=== PATIENT | female | born 1995 | race Caucasian/White ===

== ENCOUNTER 2022-08-06 15:30 | Day surgery (SDC) | payer OTHER ==
[~2022-08-06 15:30] MED LIST: L-CARNITINE25 GM; LEVO-T50 MCG PO
== END 2022-08-06 19:00 | disposition home or self-care (01) ==
LOC: CIR.AMB 15:30
PROVIDERS: ATTEND Obstetrics & Gynecology
DX: O02.1 Missed abortion (principal); Z20.822 Contact with and (suspected) exposure to COVID-19; Z88.8 Allergy status to other drugs, medicaments and biological substances; E03.9 Hypothyroidism, unspecified

== ENCOUNTER 2023-03-04 09:25 | Outpatient (CLI) | payer OTHER | END 2023-03-04 10:17 | disposition home or self-care (01) | LOC: PRENATAL 09:25 | PROVIDERS: ATTEND Obstetrics & Gynecology Maternal & Fetal Medicine | DX: O36.80X0 Pregnancy with inconclusive fetal viability, not applicable or unspecified (principal); O99.280 Endocrine, nutritional and metabolic diseases complicating pregnancy, unspecified trimester; Z3A.12 12 weeks gestation of pregnancy ==

== ENCOUNTER 2023-03-10 18:24 | Emergency (ER) | payer OTHER ==
[~2023-03-10] VITALS: Ht 160 cm; Wt 84.8 kg
[2023-03-10] MEDS ORDERED: MACRODANTIN100 M1 PO (21:30)
== END 2023-03-10 22:09 | disposition home or self-care (01) ==
LOC: ER 18:24
DX: R10.11 Right upper quadrant pain (principal); N39.0 Urinary tract infection, site not specified; Z88.1 Allergy status to other antibiotic agents

== ENCOUNTER 2023-04-29 07:35 | Outpatient (CLI) | payer OTHER ==
[~2023-04-29 07:35] MED LIST changes: +MACRODANTIN100 M1 PO
== END 2023-04-29 09:46 | disposition home or self-care (01) ==
LOC: PRENATAL 07:35
PROVIDERS: ATTEND Obstetrics & Gynecology Maternal & Fetal Medicine
DX: O35.9XX0 Maternal care for (suspected) fetal abnormality and damage, unspecified, not applicable or unspecified (principal); O35.3XX0 Maternal care for (suspected) damage to fetus from viral disease in mother, not applicable or unspecified; O99.280 Endocrine, nutritional and metabolic diseases complicating pregnancy, unspecified trimester; Z3A.20 20 weeks gestation of pregnancy

== ENCOUNTER 2023-06-17 22:04 | Outpatient (CLI) | payer OTHER ==
[2023-06-17] MEDS ORDERED: SYNTHROID50 MCG PO (22:11)
[2023-06-17] MEDS ORDERED: PRENATAL TABLE1 EAC1 PO (22:12)
== END 2023-06-18 16:09 | disposition home or self-care (01) ==
LOC: LDR 22:04 → OBS/DEL 22:04
PROVIDERS: Obstetrics & Gynecology; ATTEND Obstetrics & Gynecology
DX: O23.32 Infections of other parts of urinary tract in pregnancy, second trimester (principal); N39.0 Urinary tract infection, site not specified; Z3A.27 27 weeks gestation of pregnancy; Z88.1 Allergy status to other antibiotic agents

== ENCOUNTER 2023-08-29 11:58 | Inpatient (IN) | payer OTHER ==
[~2023-08-29] VITALS: Ht 160 cm; Wt 98.4 kg
[~2023-08-29 11:58] MED LIST changes: +PRENATAL TABLE1 EAC1 PO; +SYNTHROID50 MCG PO
[2023-09-11 04:33] LABS: HEMATOCRIT 35.9 % (36.0-45.00); HEMOGLOBIN 12.2 g/dL (12.0-15.00); MEAN CELL VOLUME 91.5 fL (80.00-100.00); MEAN CORPUSCULAR HGB CONC 33.9 g/dl (32.0-36.0); PLATELET COUNT 283 K/uL (150-450); RED BLOOD COUNT 3.92 M/uL (4.00-6.00); RED CELL DISTRIBUTION WIDTH 14.2 % (11.5-14.5)
[2023-09-11 04:59] LABS: URINE APPEARANCE Cloudy; URINE BILIRRUBIN Negative (NEGATIVE); URINE BLOOD Small; URINE COLOR Yellow; URINE GLUCOSE Negative (NEGATIVE); URINE LEUKOCYTE Negative; URINE NITRATE Negative; URINE PROTEIN Trace (NEGATIVE); URINE UROBILINOGEN 0.2 E.U./dl
[2023-09-11 05:02] LABS: URINE BACTERIA 25.1 uL (0.0-1933); URINE EPITHELIAL CELLS 23.6 uL (0.0-38.8); URINE RBC 270.1 uL (0.0-20.8)
[2023-09-11 05:07] LABS: INR < 0.93; PARTIAL THROMBOPLASTIN TIME 25.5 SECONDS (22.0-34.0); PROTHROMBIN TIME 9.4 SECONDS (9.0-11.5)
[2023-09-11 05:12] LABS: ALBUMIN 2.7 gm/dL (3.4-5.0); BILIRUBIN TOTAL 0.23 mg/dL (0.3-1.2); CALCIUM 9.7 mg/dL (8.5-10.1); CREATININE SERUM 0.55 mg/dL (0.55-1.02); GFR 133.61; GLOBULINA 3.9 G/DL (2.4-3.5); POTASSIUM 4.28 mEq/L (3.5-5.1); TOTAL PROTEIN 6.6 gm/dL (6.4-8.2)
[2023-09-11] MEDS ORDERED: KEFLEX PO (07:37)
[2023-09-12 07:26] LABS: HEMATOCRIT 30.3 % (36.0-45.00); HEMOGLOBIN 10.9 g/dL (12.0-15.00); MEAN CELL VOLUME 90.2 fL (80.00-100.00); MEAN CORPUSCULAR HEMOGLOBIN 32.4 pg (27.00-32.0); MEAN CORPUSCULAR HGB CONC 35.9 g/dl (32.0-36.0); PLATELET COUNT 244 K/uL (150-450); RED BLOOD COUNT 3.35 M/uL (4.00-6.00); RED CELL DISTRIBUTION WIDTH 14.7 % (11.5-14.5)
== END 2023-09-13 14:43 | disposition home or self-care (01) | DRG 807 ==
LOC: OB/GYN 09-11 03:33 → LDR 09-11 03:33 → OB/GYN 09-12 08:14
PROVIDERS: Obstetrics & Gynecology; ADMIT Student in an Organized Health Care Education/Training Program; ATTEND Student in an Organized Health Care Education/Training Program
PROC: 10E0XZZ Delivery of Products of Conception, External Approach (ICD-10-PCS; principal; 2023-09-11)
PROC: 0UQG7ZZ Repair Vagina, Via Natural or Artificial Opening (ICD-10-PCS; 2023-09-11)
PROC: 0W8NXZZ Division of Female Perineum, External Approach (ICD-10-PCS; 2023-09-11)
PROC: 4A1HXCZ Monitoring of Products of Conception, Cardiac Rate, External Approach (ICD-10-PCS; 2023-09-11)
DX: O71.4 Obstetric high vaginal laceration alone (principal); Z37.0 Single live birth; Z3A.39 39 weeks gestation of pregnancy; Z20.822 Contact with and (suspected) exposure to COVID-19